=== PATIENT | male | born 1945 | race Caucasian/White ===

== ENCOUNTER 2019-12-06 06:13 | Inpatient (IN) | payer OTHER ==
[2019-11-25 12:40] VITALS: BMI 35.2
[2019-12-06] MEDS ORDERED: TRANEXAMIC ACID 1000 MG/10 ML VIAL IVPUSH ONE (06:32)
[2019-12-06] MEDS ORDERED: CEFAZOLIN 3 GM in DEXTROSE 5%-WATER - 100 ML IVPB ONE (06:32)
[2019-12-06] MEDS ORDERED: CELECOXIB 200 MG CAPSULE PO ONE (06:32)
[2019-12-06] MEDS ORDERED: LOCK ITEM NR ONE (06:33)
[2019-12-06] MEDS ORDERED: MIDAZOLAM HCL 2 MG/2 ML SINGLE DOSE VIAL ONE (06:54)
[2019-12-06] MEDS ORDERED: BUPIVACAINE LIPOSOME/PF (EXPAREL) 266 MG/20 ML VIAL ONE (06:54)
[2019-12-06] MEDS ORDERED: SODIUM CHLORIDE 0.9% P/F 10 ML VIAL IJ ONE ×2 (06:55→09:21)
[2019-12-06] MEDS ORDERED: PROPOFOL 20 ML ONE (07:03)
[2019-12-06] MEDS ORDERED: VANCOMYCIN 1,000 MG VIAL (RESTRICTED TO ID ONLY) ONE (07:04)
[2019-12-06] MEDS ORDERED: ceFAZolin SODIUM 1 GM VIAL ONE ×3 (07:04→15:59)
[2019-12-06] MEDS ORDERED: SUCCINYLCHOLINE CHLORIDE 200 MG/10 ML SYRINGE ONE (07:04)
[2019-12-06] MEDS ORDERED: ONDANSETRON 4 MG/2 ML VIAL IVPUSH PRN ×2 (07:55→10:38)
[2019-12-06] MEDS ORDERED: MAGNESIUM HYDROX 2400MG/30ML ORAL SUSPENSION 30 ML CUP PO PRN (07:55)
[2019-12-06] MEDS ORDERED: MAG HYDROX/AL HYDROX/SIMETH 30 ML UNIT-DOSE CUP PO PRN (07:55)
--- NOTE | 2019-12-06 07:57 | HP ---
Satellite [facility] - Chief Complaint Chief Complaint: left knee pain - Past Medical History Allergies/Adverse Reactions: Allergies Allergy/AdvReac Type Severity Reaction Status Date / Time No Known Drug Allergies Allergy Verified 11/25/19 12:06 - Current Medications Current Medications: Home Medications Medication Instructions Recorded Amlodipine Besylate 5 mg PO DAILY 11/25/19 Aspirin [Aspirin EC] 81 mg PO DAILY 11/25/19 Atorvastatin Ca [Lipitor] 10 mg PO DAILY 11/25/19 Metoprolol Succinate 25 mg PO DAILY 11/25/19 Tramadol HCl 50 mg PO ASDIR PRN 11/25/19 Satellite Physical Exam - Physical Examination Vital Signs: Vital Signs Period Temp Pulse Resp BP Sys/Vann Pulse Ox Last 24 Hr 98.7 F 58 18 131/79 96 General Appearance: Well Nourished, Well Developed, Alert & Oriented x3 ENT: Clear Lung: Normal air movement Extremities: Other (left knee- + swelling, + ttp, decr rom, nvi, xrays show grade 4 tricompartmnetal djd) Neurological: Intact, Alert, Oriented Satellite Impression/Plan - Impression/Plan Impression: left knee djd Operative Procedure: left yoni tkr Date to be Performed: 12/06/19
[2019-12-06] MEDS ORDERED: LACTATED RINGERS SOLUTION 1,000 ML IV SCH (08:00)
[2019-12-06] MEDS ORDERED: DEXAMETHASONE SOD PHOSPHATE 4 MG/1 ML VIAL ONE (08:28)
[2019-12-06] MEDS ORDERED: ONDANSETRON 4 MG/2 ML VIAL ONE (08:28)
[2019-12-06] MEDS ORDERED: KETOROLAC TROMETHAMINE 30 MG/1 ML VIAL ONE (08:28)
[2019-12-06] MEDS ORDERED: PHENYLEPHRINE HCL 10 MG/1 ML SINGLE DOSE VIAL ONE ×2 (09:05→09:21)
[2019-12-06] MEDS ORDERED: ePHEDrine SULFATE 50 MG/1 ML AMPULE ONE (09:21)
[2019-12-06] MEDS ORDERED: VANCOMYCIN 1,000 MG VIAL (RESTRICTED TO ID ONLY) IVPB ONE (09:38)
--- NOTE | 2019-12-06 10:03 | OP ---
Operative Note - Note: Operative Date: 12/06/19 (dayanna) Pre-Operative Diagnosis: left knee djd Operation: left yoni tkr Post-Operative Diagnosis: Same as Pre-op Surgeon: Brandon Chavez Public Health Policy Analyst: Jerry Roche Anesthesia: Spinal, Local Specimens Removed: bone fragments Estimated Blood Loss (mls): 100
[2019-12-06] MEDS ORDERED: oxyCODONE HCL 5 MG TABLET PO PRN (10:38)
[2019-12-06] MEDS ORDERED: ACETAMINOPHEN 1000 MG/100 ML VIAL (NON FORMULARY) IVPB ONE (10:38)
[2019-12-06] MEDS ORDERED: traMADol HCL 50 MG TABLET PO PRN (10:38)
--- NOTE | 2019-12-06 12:06 | SPEC ---
DATE OF OPERATION: 12/06/2019 PREOPERATIVE DIAGNOSIS: Degenerative joint disease, left knee. POSTOPERATIVE DIAGNOSIS: Degenerative joint disease, left knee. PROCEDURE: Left total knee replacement with robotic-assisted navigation (MAKOplasty/cementless). SURGICAL ATTENDING: Brandon Chavez MD VOIP ENGINEER: RONNELL Esteban ANESTHESIA: Regional and spinal. CLOSURE: A Press-Fit Triathlon knee system with a 6 femur, 7 tibia, 11 polyethylene, a 38 patella; No. 1 Vicryl, fascia; 0 and 2-0 for subcutaneous; and 3-0 Monocryl subcuticular with skin glue for skin; 4-0 undyed Vicryl for pin sites. ESTIMATED BLOOD LOSS: Less than 100 mL. COMPLICATIONS: None. CONDITION: To recovery room in stable condition. DESCRIPTION OF OPERATIVE PROCEDURE: Patient was taken to the operating room on . Regional and spinal anesthesia was administered by the anesthesiologist. IV Kefzol was administered prophylactically prior to the case as well as TXA. The left lower extremity was prepped and draped in the usual sterile fashion. The midline 10- to 12-cm longitudinal incision was made. Hemostasis was achieved with Bovie cautery. Sharp dissection was carried down to the extensor mechanism which was perform the procedure. Medial parapatellar arthrotomy was then performed, leaving a cuff of tissue for later closure. The patella was inverted and the knee was flexed up. The fat pad was excised. Subperiosteal dissection was done on the anteromedial proximal tibia until the knee was able to be brought forward. This was facilitated by taking the ACL, PCL and medial and lateral menisci. Checkpoints were placed in both the femur and in the tibia. Two parallel threaded pins were drilled superior to the knee joint through the already made incision from anterior to posterior just going through the anterior cortex but just engaging but not going through the posterior cortex. Two threaded pins were drilled through 2 small stab incisions in parallel fashion 1 handbreadth below the tibial tubercle through the anterior cortex of the tibia and engaging but not going through the posterior cortex. Both sets of pins were attached to navigation arrays for the ALEXIS system. The knee was then registered with the navigation system with center of rotation of the hip, medial and lateral malleoli and multiple sites both on the tibia and on the femur. Confirmation of excellent registration was confirmed by "popping the bubbles." At this time, the knee was thoroughly inspected to remove all osteophytes around the knee. The knee was then tensioned in varus/valgus at both full extension and at 90 degrees of flexion to ascertain our gaps. The virtual position of the components was optimized to ensure equal gaps throughout the range of motion. Once this was performed, the robot was brought into the field, was registered. The bone was cut as per the specifications on both the tibia and on the femur. The box cuts were then made as well. Excellent trial stability was obtained on the femur. The tibial baseplate was allowed to "find itself" and then was clipped into place. Confirmation of excellent external rotation of that component was confirmed by the navigation device as well.The patella was calibered for thickness and cut at the appropriate level. The appropriate lollipop was used to drill 3 holes in the patella and a trial asymmetric patellar button was applied. The knee was taken through a range of motion and found to have excellent stability from full extension to full flexion with excellent tracking of the patella. The trial components were then removed. The lug holes were drilled in the femur. The cementless keel was punched in the tibia. The real Press-Fit components were malleted into place, first with the tibia and then with the femur, and then the patella was crimped into place as well. The real polyethylene liner was then clipped into place. Range of motion, stability and tracking were as described earlier. The knee was thoroughly irrigated with copious amounts of irrigation. Vancomycin powder was placed inside the joint. The medial parapatellar arthrotomy was then closed using No. 1 Vicryl interrupted suture. Post closure of the arthrotomy, the knee was taken through a range of motion and found to have no undue tension on the repair. The subcutaneous was then pulse antibiotic irrigated, closed with 0 and 2-0 Vicryl and 3-0 Monocryl subcuticular with skin glue for the skin. Prior to closure, the checkpoints were removed as were the threaded pins. The tibial pin sites were closed with 4-0 undyed Vicryl. A sterile pressure Aquacel dressing was applied. No tourniquet was used during the case. The total blood loss was approximately 100 mL. No complication. Patient was transferred to recovery in stable condition. Danilo [id number]
[2019-12-06] MEDS: oxyCODONE HCL 5 MG TABLET PO PRN ×3 (13:02→19:55)
[2019-12-06] MEDS ORDERED: DEXTROSE 5%-WATER 100 ML IVPB ONE (15:59)
[2019-12-06] MEDS: CEFAZOLIN 3 GM in DEXTROSE 5%-WATER 100 ML IVPB SCH (16:03)
[2019-12-06] MEDS: amLODIPine BESYLATE 5 MG TABLET (FP) PO SCH (18:15)
[2019-12-06] MEDS: MULTIVITAMINS (DAILY MVI) TABLET (FP) PO SCH (18:16)
[2019-12-06] MEDS: PANTOPRAZOLE 40 MG TABLET PO SCH (18:16)
[2019-12-06] MEDS: SENNOSIDES/DOCUSATE COMBO (SENNA PLUS) TABLET (UD) PO SCH ×2 (18:16→21:20)
[2019-12-06] MEDS: metoPROLOL SUCCINATE 25 MG TAB.SR.24H (FP) PO SCH (18:16)
[2019-12-06] MEDS: LACTATED RINGERS SOLUTION 1,000 ML IV SCH (18:17)
[2019-12-06] MEDS: ATORVASTATIN CA 10 MG TABLET (FP) PO SCH (21:24)
[2019-12-07] MEDS: CEFAZOLIN 3 GM in DEXTROSE 5%-WATER 100 ML IVPB SCH (00:15)
[2019-12-07] MEDS: oxyCODONE HCL 5 MG TABLET PO PRN ×4 (05:36→17:45)
--- NOTE | 2019-12-07 07:58 | PN ---
Progress Note (short form) - Note Progress Note: Ortho Pt seen and examined s/p left yoni thr pod #1 Selected Entries 12/07/19 06:00 Temperature 99.1 F Pulse Rate 76 Respiratory 18 Rate Blood Pressure 131/54 L Laboratory Tests 12/07/19 06:40 WBC Pending Hgb Pending Hct Pending Plt Count Pending dressing c/d/i, rom 0-30, calf soft, nt nvi a/p PT dvt ppx pain control d/c home tomorrow if stable
[2019-12-07] MEDS: ASPIRIN 325 MG TABLET PO SCH (08:00)
[2019-12-07 08:17] LABS: HEMATOCRIT 34.6 % (35.4-49); HEMOGLOBIN 11.7 GM/dl (11.7-16.9); MCH 32.3 pg (25.7-33.7); MCHC 33.9 g/dl (32.0-35.9); MEAN CELL VOLUME 95.3 fl (80-96); MEAN PLT VOLUME 7.8 fl (7.5-11.1); PLATELET COUNT 184 K/MM3 (134-434); RBC 3.63 M/mm3 (4.00-5.60); RDW 13.2 % (11.9-15.9); WHITE BLOOD COUNT 8.7 K/mm3 (4.0-10.8)
[2019-12-07] MEDS: PANTOPRAZOLE 40 MG TABLET PO SCH (09:38)
[2019-12-07] MEDS: SENNOSIDES/DOCUSATE COMBO (SENNA PLUS) TABLET (UD) PO SCH ×2 (09:38→21:50)
[2019-12-07] MEDS: MULTIVITAMINS (DAILY MVI) TABLET (FP) PO SCH (09:38)
[2019-12-07] MEDS: amLODIPine BESYLATE 5 MG TABLET (FP) PO SCH (09:38)
[2019-12-07] MEDS: metoPROLOL SUCCINATE 25 MG TAB.SR.24H (FP) PO SCH (09:38)
--- NOTE | 2019-12-07 13:54 | PN ---
Progress Note (short form) - Note Progress Note: 74M POD1 s/p L TKR under spinal anesthetic with peripheral nerve blocks. Pt states that pain is well controlled and reports no anesthetic complications. AVSS. Motor and sensory exam intact in bilateral lower extremities.
[2019-12-07] MEDS: ATORVASTATIN CA 10 MG TABLET (FP) PO SCH (21:51)
[2019-12-08] MEDS: oxyCODONE HCL 5 MG TABLET PO PRN ×3 (01:31→09:35)
[2019-12-08] MEDS: ASPIRIN 325 MG TABLET PO SCH (07:41)
[2019-12-08] MEDS: LACTATED RINGERS SOLUTION 1,000 ML IV SCH ×2 (07:42→11:36)
[2019-12-08 08:11] LABS: HEMATOCRIT 31.5 % (35.4-49); HEMOGLOBIN 10.7 GM/dl (11.7-16.9); MCH 32.5 pg (25.7-33.7); MEAN CELL VOLUME 95.7 fl (80-96); MEAN PLT VOLUME 7.8 fl (7.5-11.1); PLATELET COUNT 160 K/MM3 (134-434); RBC 3.29 M/mm3 (4.00-5.60); RDW 12.9 % (11.9-15.9); WHITE BLOOD COUNT 8.2 K/mm3 (4.0-10.8)
--- NOTE | 2019-12-08 08:17 | PN ---
Progress Note (short form) - Note Progress Note: Ortho Pt seen and examined s/p left yoni thr pod #2 Selected Entries 12/08/19 04:00 Temperature 99.4 F Pulse Rate 110 H Respiratory 18 Rate Blood Pressure 156/65 Laboratory Tests 12/07/19 06:40 WBC 8.7 Hgb 11.7 Hct 34.6 L Plt Count 184 aquacel with drainage on superior aspect but no to borders, rom 0-30, calf soft, nt nvi a/p PT dvt ppx pain control d/c pending PT, may benefit from another day
[2019-12-08] MEDS: PANTOPRAZOLE 40 MG TABLET PO SCH (09:34)
[2019-12-08] MEDS: MULTIVITAMINS (DAILY MVI) TABLET (FP) PO SCH (09:34)
[2019-12-08] MEDS: amLODIPine BESYLATE 5 MG TABLET (FP) PO SCH (09:34)
[2019-12-08] MEDS: metoPROLOL SUCCINATE 25 MG TAB.SR.24H (FP) PO SCH (09:34)
[2019-12-08] MEDS: SENNOSIDES/DOCUSATE COMBO (SENNA PLUS) TABLET (UD) PO SCH (09:35)
[2019-12-08 13:57] VITALS: BP 134/59; PULSE 97; TEMP 99.1
--- NOTE | 2019-12-08 14:52 | DS ---
Physical Examination Vital Signs: Vital Signs Temperature 99.1 F 12/08/19 13:55 Pulse Rate 97 H 12/08/19 13:55 Respiratory Rate 18 12/08/19 13:55 Blood Pressure 134/59 L 12/08/19 13:55 O2 Sat by Pulse Oximetry (%) 99 12/08/19 13:55 Labs: CBC, BMP 12/08/19 07:06 Discharge Summary Problems reviewed: Yes Reason For Visit: OSTEOARTHRITIS Procedures: Principal: left tkr Hospital Course: admitted for elective left yoni tkr, post op per protocol, stable for d/c Condition: Good - Instructions Diet, Activity, Other Instructions: Post-op Instructions-Total Knee Replacement Call the office for a follow-up appointment in 1 week - [phone] Aspirin 325mg daily for 6 weeks. Pain medication was sent into your pharmacy. Apply Graduated Compression Stockings (TEDs) to both lower extremities- remove daily for hygiene ONLY Apply Sequential Compression Device (SCDs) to both Lower extremities remove for PT and hygiene ONLY Apply cold packs to affected area for 15 minutes every 2 hours. Physical Therapist will come to your home for the first 5 days. You will be set up with outpatient PT at your first post-operative visit. Patient may ambulate as tolerated-encourage self care (at least every 2-3 hours while awake) with walker or cane Maintain Aquacel (waterproof) dressing to operative wound (will be removed by surgeon at first office visit) Shower with Aquacel dressing in place-if Aquacel integrity compromised, remove and apply dry sterile dressing and notify Orthopedist. DO NOT SHOWER unless Orthopedists approves without Aquacel dressing CONTACT THE OFFICE FOR ANY CHANGE IN YOUR CONDITION (for example-fever greater than 102 degrees, excessive bleeding from operative site, purulent drainage, severe swelling or pain) GO TO THE EMERGENCY ROOM IF THERE IS A MEDICAL EMERGENCY Knee Precautions: * Keep a rolled towel under affected heel while in bed or chair (to keep knee in extension) * Keep affected leg elevated except during mealtimes * DO NOT PLACE PILLOW UNDER AFFECTED KNEE * If you have any questions, please do not hesitate to call the office - [phone]. Referrals: Brandon Chavez MD [Staff Physician] - Disposition: VNS/HOME HEALTH CARE - Home Medications Comprehensive Discharge Medication List: Ambulatory Orders Amlodipine Besylate 5 mg PO DAILY 11/25/19 Atorvastatin Ca [Lipitor] 10 mg PO DAILY 11/25/19 Metoprolol Succinate 25 mg PO DAILY 11/25/19 Tramadol HCl 50 mg PO ASDIR PRN 11/25/19 Aspirin [ASA -] 325 mg PO DAILY@0800 tablet 12/07/19 Oxycodone HCl/Acetaminophen [Percocet 5-325 mg Tablet -] 1 - 2 tab PO Q6H #50 tab MDD 8 12/07/19 Oxycodone HCl/Acetaminophen [Percocet 5-325 mg Tablet -] 1 - 2 tab PO Q6H #50 tab MDD 8 12/08/19
--- NOTE | 2019-12-08 16:01 | PATH ---
Surgical Pathology Report Patient Name: MANE DELGADO Med. Rec. #: [id number] /Age/Gender: 1945 (Age: 74) / M Account: [id number] Location: [facility] MED-SURG Taken: 12/06/2019 Received: 12/06/2019 Reported: 12/08/2019 Physicians: Brandon Chavez M.D. Specimen(s) Received LEFT KNEE BONES Clinical History Osteoarthritis left knee Final Diagnosis LEFT KNEE BONE, RESECTION: DEGENERATIVE JOINT DISEASE, LEFT KNEE. Electronically Signed Sánchez Lei M.D. Gross Description Received in formalin labeled "left knee bone," is a 13.5 x 13.0 x 1.2 cm aggregate of lara-yellow, irregular portions of bone and soft tissue. The tibial plateau measures 8.0 x 6.0 x 1.3 cm. There are multiple areas of eburnation present, measuring up to 3.5 cm in greatest dimension. The remaining articular surfaces are lara-yellow and diffusely granular. The underlying trabecular bone is yellow and hard. Packing Line Operator sections are submitted in one cassette, following decalcification. /12/07/2019 saudi12/07/2019
== END 2019-12-08 17:18 | disposition home health service (06) | DRG 470 ==
LOC: FM/S 06:13
PROVIDERS: ADMIT Orthopaedic Surgery; ATTEND Orthopaedic Surgery
PROC: 8E0Y0CZ Robotic Assisted Procedure of Lower Extremity, Open Approach (ICD-10-PCS; 2019-12-06)
PROC: 0SRD0JA Replacement of Left Knee Joint with Synthetic Substitute, Uncemented, Open Approach (ICD-10-PCS; principal; 2019-12-06 08:38)
DX: M17.12 Unilateral primary osteoarthritis, left knee (principal)
CPT/HCPCS: 36415; 73560-TC-LT-FY; 85027; 88304-TC; 88311-TC; 94760; 97010-GP; 97116-GP; 97163-GP; J0131